=== PATIENT | male | born 1970 | race Caucasian/White ===

== ENCOUNTER 2021-02-27 02:29 | Emergency (ER) | payer OTHER ==
[~2021-02-27 02:29] MED LIST: BACTRIM DS TAB1 EACH PO; HCTZ25 MG PO
[2021-02-27 03:21] LABS: BASOPHIL 0.7 % (0-2); EOSINOPHIL 2.5 % (0-5); HCT 29.3 % (42.0-52.0); LYMPHOCYTE 13.4 % (15-48); MCH 40.5 pg (25.0-31.0); MCHC 34.1 g/dL (32.0-36.0); MCV 118.6 fL (78.0-100.0); MONOCYTE 13.4 % (0-12); MPV 10.8 fL (6.0-9.5); NEUTROPHIL 69.1 % (41-80); NRBC 0; RBC 2.47 M/uL (4.70-6.00); WBC 5.6 K/uL (4.0-10.5)
[2021-02-27 03:31] LABS: INR 2.21 (0.9-1.2); PROTHROMBIN TIME 23.3 SECONDS (11.4-13.6); PTT 39.6 SECONDS (22.2-34.7)
[2021-02-27 03:39] LABS: ALBUMIN 1.7 g/dL (3.4-5.0); BILIRUBIN - DIRECT 4.8 mg/dL (0.00-0.20); BILIRUBIN - TOTAL 7.5 mg/dL (0.2-1.0); BUN/CREAT RATIO (CALC) 16.7 RATIO; C-REACTIVE PROTEIN 5.8 mg/dL (<=0.90); CREATININE 0.66 mg/dL (0.67-1.17); GLOBULIN (CALCULATION) 6.1 g/dL; MAGNESIUM 1.9 mg/dL (1.8-2.4); PHOSPHORUS 2.1 mg/dL (2.6-4.7); POTASSIUM 3.6 mmol/L (3.5-5.1); TOTAL PROTEIN 7.8 g/dL (6.4-8.2)
[2021-02-27 03:48] LABS: PLT 75 K/uL (150-400)
[2021-02-27 03:55] LABS: LACTIC ACID 4.3 mmol/L (0.4-1.9)
[2021-02-27 04:57] LABS: BILIRUBIN 1+ mg/dL (NEGATIVE); BLOOD NEGATIVE Ery/uL (NEGATIVE); CLARITY CLEAR (CLEAR); COLOR YELLOW (YELLOW); GLUCOSE (U) NORMAL (NORMAL); LEUKOCYTES NEGATIVE Leu/uL (NEGATIVE); NITRITE NEGATIVE (NEGATIVE); PROTEIN NEGATIVE (NEGATIVE); pH 5.5 (5.0-9.0)
[2021-03-30] MEDS ORDERED: PRINIVIL10 MG PO (09:54)
[2021-03-30] MEDS ORDERED: ATARAX25 MG PO (09:56)
[2021-03-30] MEDS ORDERED: FOLIC ACID1 MG PO ×2 (11:44→17:05)
[2021-03-30] MEDS ORDERED: PROTONIX 40MG T40 MG PO ×2 (11:44→17:05)
[2021-03-30] MEDS ORDERED: LASIX40 MG PO ×2 (11:44→17:05)
[2021-03-30] MEDS ORDERED: K-DUR20 MEQ PO (11:45)
[2021-03-30] MEDS ORDERED: ALDACTONE100 MG PO ×2 (11:46→17:05)
== END 2021-02-27 15:10 | disposition other institution (70) ==
LOC: FER 02:29
PROVIDERS: Emergency Medicine Emergency Medical Services
DX: K74.60 Unspecified cirrhosis of liver (principal); K76.6 Portal hypertension; R60.0 Localized edema; R21 Rash and other nonspecific skin eruption; N50.819 Testicular pain, unspecified; F17.200 Nicotine dependence, unspecified, uncomplicated
CPT/HCPCS: 36415; 71045; 80053; 81003; 82150; 82248; 83605; 83690; 83735; 84100; 84145; 85025; 85610; 85730; 86140; 87040; 87077; 87186; 93005; J1940; J2060; J7030; Q9967

== ENCOUNTER 2021-03-08 18:40 | Emergency (ER) | payer OTHER ==
[2021-03-08 19:48] LABS: ALBUMIN 1.8 g/dL (3.4-5.0); BILIRUBIN - TOTAL 6.6 mg/dL (0.2-1.0); BUN/CREAT RATIO (CALC) 21.1 RATIO; CREATININE 0.71 mg/dL (0.67-1.17); GLOBULIN (CALCULATION) 5.8 g/dL; TOTAL PROTEIN 7.6 g/dL (6.4-8.2)
[2021-03-08 19:53] LABS: BASOPHIL 0.7 % (0-2); EOSINOPHIL 3.3 % (0-5); HCT 30.7 % (42.0-52.0); HGB 10.3 g/dl (13.2-18.0); LYMPHOCYTE 14.1 % (15-48); MCHC 33.6 g/dL (32.0-36.0); MONOCYTE 15.6 % (0-12); MPV 10.1 fL (6.0-9.5); NEUTROPHIL 65.9 % (41-80); NRBC 0; PLT 113 K/uL (150-400); RBC 2.64 M/uL (4.70-6.00)
[2021-03-08 19:54] LABS: MCV 116.3 fL (78.0-100.0); POTASSIUM 4.2 mmol/L (3.5-5.1)
[2021-03-08 19:56] LABS: LACTIC ACID 1.9 mmol/L (0.4-1.9)
[2021-03-08 20:01] LABS: MAGNESIUM 1.9 mg/dL (1.8-2.4); PHOSPHORUS 3.7 mg/dL (2.6-4.7)
[2021-03-08 21:09] LABS: BILIRUBIN 1+ mg/dL (NEGATIVE); BLOOD NEGATIVE Ery/uL (NEGATIVE); CLARITY CLEAR (CLEAR); COLOR YELLOW (YELLOW); GLUCOSE (U) NORMAL (NORMAL); LEUKOCYTES NEGATIVE Leu/uL (NEGATIVE); NITRITE NEGATIVE (NEGATIVE); PROTEIN NEGATIVE (NEGATIVE)
[2021-03-30] MEDS ORDERED: PRINIVIL10 MG PO (09:54)
[2021-03-30] MEDS ORDERED: ATARAX25 MG PO (09:56)
[2021-03-30] MEDS ORDERED: FOLIC ACID1 MG PO ×2 (11:44→17:05)
[2021-03-30] MEDS ORDERED: LASIX40 MG PO ×2 (11:44→17:05)
[2021-03-30] MEDS ORDERED: PROTONIX 40MG T40 MG PO ×2 (11:44→17:05)
[2021-03-30] MEDS ORDERED: K-DUR20 MEQ PO (11:45)
[2021-03-30] MEDS ORDERED: ALDACTONE100 MG PO ×2 (11:46→17:05)
== END 2021-03-09 03:32 | disposition home or self-care (01) ==
LOC: FER 18:40
PROVIDERS: Emergency Medicine Emergency Medical Services
DX: R18.8 Other ascites (principal); K42.9 Umbilical hernia without obstruction or gangrene; K40.90 Unilateral inguinal hernia, without obstruction or gangrene, not specified as recurrent; I10 Essential (primary) hypertension; R60.0 Localized edema; Z79.899 Other long term (current) drug therapy; Z87.19 Personal history of other diseases of the digestive system
CPT/HCPCS: 36415; 80053; 81003; 83605; 83690; 83735; 84100; 85025; 96374; P9046

== ENCOUNTER 2021-03-31 13:36 | Inpatient (IN) | payer OTHER ==
[~2021-03-31] VITALS: Ht 198.1 cm; Wt 117.1 kg
[~2021-03-31 13:36] MED LIST changes: +ALDACTONE100 MG PO; +ATARAX25 MG PO; +FOLIC ACID1 MG PO; +K-DUR20 MEQ PO; +LASIX40 MG PO; +PRINIVIL10 MG PO; +PROTONIX 40MG T40 MG PO
[2021-03-31 14:23] LABS: BASOPHIL 0.2 % (0-2); EOSINOPHIL 0.1 % (0-5); HCT 30.1 % (42.0-52.0); HGB 10.4 g/dl (13.2-18.0); LYMPHOCYTE 1.9 % (15-48); MCH 36.2 pg (25.0-31.0); MCHC 34.6 g/dL (32.0-36.0); MCV 104.9 fL (78.0-100.0); MONOCYTE 6.6 % (0-12); MPV 10.7 fL (6.0-9.5); NEUTROPHIL 89.6 % (41-80); NRBC 0; PLT 113 K/uL (150-400); RBC 2.87 M/uL (4.70-6.00); RDW 14.2 % (11.5-14.0)
[2021-03-31 14:37] LABS: WBC 16.1 K/uL (4.0-10.5)
[2021-03-31 14:43] LABS: ALBUMIN 1.8 g/dL (3.4-5.0); BILIRUBIN - TOTAL 7.1 mg/dL (0.2-1.0); BUN/CREAT RATIO (CALC) 21.9 RATIO; CREATININE 1.83 mg/dL (0.67-1.17); GLOBULIN (CALCULATION) 5.4 g/dL; TOTAL PROTEIN 7.2 g/dL (6.4-8.2)
[2021-03-31 15:03] LABS: INR 2.25 (0.9-1.2); PTT 38.6 SECONDS (24.4-34.7)
[2021-03-31 15:27] LABS: LACTIC ACID 5.7 mmol/L (0.4-1.9)
[2021-03-31 15:45] LABS: BILIRUBIN 2+ mg/dL (NEGATIVE); BLOOD 1+ Ery/uL (NEGATIVE); CLARITY CLEAR (CLEAR); COLOR YELLOW (YELLOW); GLUCOSE (U) NORMAL (NORMAL); LEUKOCYTES NEGATIVE Leu/uL (NEGATIVE); NITRITE POSITIVE (NEGATIVE); PROTEIN TRACE (LOW) mg/dL (NEGATIVE)
[2021-03-31 15:47] LABS: MARIJUANA (THC) NEGATIVE (NEGATIVE)
[2021-03-31 15:48] LABS: AMPHETAMINES NEGATIVE (NEGATIVE); BARBITURATES NEGATIVE (NEGATIVE); ECSTASY (MDMA) NEGATIVE (NEGATIVE); METHADONE NEGATIVE (NEGATIVE); OPIATES NEGATIVE (NEGATIVE); OXYCODONE NEGATIVE (NEGATIVE)
[2021-03-31 15:56] LABS: BACTERIA TRACE; SQUAMOUS EPITHELIAL CELLS RARE; URINARY RBC RARE
[2021-03-31 20:31] LABS: CLARITY (FLUID) CLOUDY; COLOR (FLUID) YELLOW
[2021-03-31 20:32] LABS: RBC (FLUID) 0 RBC/uL; WBC (FLUID) 19 WBC/uL
[2021-04-01 04:41] LABS: BASOPHIL 0.3 % (0-2); EOSINOPHIL 0.3 % (0-5); LYMPHOCYTE 2.7 % (15-48); MCH 36.4 pg (25.0-31.0); MCHC 34.5 g/dL (32.0-36.0); MCV 105.5 fL (78.0-100.0); MPV 10.3 fL (6.0-9.5); NEUTROPHIL 86.5 % (41-80); NRBC 0; PLT 111 K/uL (150-400); RBC 2.75 M/uL (4.70-6.00); RDW 14.4 % (11.5-14.0)
[2021-04-01 04:42] LABS: WBC 22.9 K/uL (4.0-10.5)
[2021-04-01 05:09] LABS: BUN/CREAT RATIO (CALC) 28.2 RATIO; CREATININE 1.56 mg/dL (0.67-1.17)
[2021-04-01 05:10] LABS: POTASSIUM 5.2 mmol/L (3.5-5.1)
--- NOTE | 2021-04-01 16:56 | NUR ---
04/01/21 Mr. Vicente requested to speak with this clinical social work therapist re: financial and counseling resources. He is living alone in an apartment. Mr. Vicente is employed at [employer] although he has been unable to work for the last month. He has a car. Mr. Vicente is in the application process for [employer]. He is unable to pay next months rent. - Mr. Vicente denies suicidal ideation, intentions, or attempts. - He was referred to: [facility], [facility], [facility], [facility], [employer], and [employer] [facility]. A crisi hotline was provided. He was educated to methods of relaxation and stress reduction.
[2021-04-02 04:08] LABS: BASOPHIL 0.5 % (0-2); EOSINOPHIL 0.4 % (0-5); HCT 29.6 % (42.0-52.0); HGB 9.8 g/dl (13.2-18.0); LYMPHOCYTE 2.8 % (15-48); MCHC 33.1 g/dL (32.0-36.0); MCV 108.8 fL (78.0-100.0); MONOCYTE 8.7 % (0-12); MPV 11.1 fL (6.0-9.5); NEUTROPHIL 85.4 % (41-80); NRBC 0; PLT 84 K/uL (150-400); RBC 2.72 M/uL (4.70-6.00); RDW 14.5 % (11.5-14.0); WBC 20.1 K/uL (4.0-10.5)
[2021-04-02 04:25] LABS: ALBUMIN 1.5 g/dL (3.4-5.0); BILIRUBIN - TOTAL 6.6 mg/dL (0.2-1.0); BUN/CREAT RATIO (CALC) 24.4 RATIO; C-REACTIVE PROTEIN 17.7 mg/dL (<=0.90); CREATININE 2.17 mg/dL (0.67-1.17); GLOBULIN (CALCULATION) 4.5 g/dL; POTASSIUM 5.8 mmol/L (3.5-5.1)
[2021-04-02 15:30] LABS: RBC (FLUID) 3000 RBC/uL; WBC (FLUID) 7587 WBC/uL
[2021-04-02 15:35] LABS: CLARITY (FLUID) CLOUDY; COLOR (FLUID) YELLOW
--- NOTE | 2021-04-02 16:28 | NUR ---
PARACENTESIS STARTED PER MD AT 1507, CLEAR YELLOW OUTPUT, PT TOLERATED WELL, DRAINAGE SYSTEM MANAGED BY THIS NURSE, MD REQUESTED ONLY 8 LITERS TO BE TAKEN OFF AT THIS TIME, PARACENTESIS ENDED AT 1620, CATHETER REMOVED AND DRESSING APPLIED, WILL CONTINUE TO MONITOR FOR ANY EXCESSIVE DRAINAGE AT SITE
[2021-04-03 06:36] LABS: BASOPHIL 0.5 % (0-2); EOSINOPHIL 0.2 % (0-5); HCT 30.3 % (42.0-52.0); LYMPHOCYTE 2.5 % (15-48); MCH 36.4 pg (25.0-31.0); MCV 110.2 fL (78.0-100.0); MONOCYTE 8.1 % (0-12); MPV 10.8 fL (6.0-9.5); NEUTROPHIL 85.1 % (41-80); NRBC 0; PLT 128 K/uL (150-400); RBC 2.75 M/uL (4.70-6.00); RDW 14.4 % (11.5-14.0)
[2021-04-03 06:37] LABS: WBC 27.5 K/uL (4.0-10.5)
[2021-04-03 06:51] LABS: BUN/CREAT RATIO (CALC) 21.6 RATIO; CREATININE 2.87 mg/dL (0.67-1.17); POTASSIUM 5.6 mmol/L (3.5-5.1)
[2021-04-03] MEDS ORDERED: ZYVOX RTU600 MG/300 IV (13:12)
[2021-04-03] MEDS ORDERED: OXY-IR 5MG5 MG PO (13:12)
--- NOTE | 2021-04-03 18:14 | NUR ---
HIS BROTHER TOOK KEYS HOME WITH HIM
[2021-04-04 02:20] LABS: BASOPHIL 0 % (0-2); EOSINOPHIL 0.1 % (0-5); HGB 9.2 g/dl (13.2-18.0); LYMPHOCYTE 6.2 % (15-48); MCH 36.7 pg (25.0-31.0); MCHC 29.7 g/dL (32.0-36.0); MONOCYTE 2.7 % (0-12); MPV 10.7 fL (6.0-9.5); NRBC 0.5; PLT 101 K/uL (150-400); RBC 2.51 M/uL (4.70-6.00); RDW 14.3 % (11.5-14.0); WBC 23.6 K/uL (4.0-10.5)
[2021-04-04 02:27] LABS: MCV 123.5 fL (78.0-100.0); NEUTROPHIL 79.6 % (41-80)
--- NOTE | 2021-04-04 02:54 | NUR ---
0200 Pt had been on levo at 16mcg/min for most of shift with bp remaining relatively stable, was on phone with pt mother regarding pt mental status change when pt HR began to drop from low 100s to low 70s and became unresponsive eventually sustaining a v fib rhythm. Started compressions at approx 0200, see chart for official note and code details. Mother was notified of situation and taxi was called to bring to the hospital.
[2021-04-04 03:02] LABS: ALBUMIN 2.2 g/dL (3.4-5.0); ALKALINE PHOSHATASE 402 U/L (46-116); ALT 2764 U/L (16-63); BUN 62 mg/dL (7-18); BUN/CREAT RATIO (CALC) 16.4 RATIO; CHLORIDE 94 mmol/L (98-107); CO2 (BICARBONATE) 10 mmol/L (21-32); CREATININE 3.77 mg/dL (0.67-1.17); GLOBULIN (CALCULATION) 3.3 g/dL; GLUCOSE 57 mg/dL (74-106); TOTAL PROTEIN 5.5 g/dL (6.4-8.2)
[2021-04-04 03:04] LABS: POTASSIUM 7.8 mmol/L (3.5-5.1)
[2021-04-04 03:05] LABS: PROTHROMBIN TIME > 120 SECONDS (11.8-13.4)
[2021-04-04 03:07] LABS: INR > 18 (0.9-1.2)
[2021-04-04 03:22] LABS: AST >2000 U/L (15-37)
== END 2021-04-04 07:25 | disposition expired | DRG 871 ==
LOC: FER 13:36 → FICU 17:01
PROVIDERS: Emergency Medicine; Nurse Practitioner; ADMIT Internal Medicine
PROC: 0W9G3ZX Drainage of Peritoneal Cavity, Percutaneous Approach, Diagnostic (ICD-10-PCS; 2021-03-31)
PROC: 3E033XZ Introduction of Vasopressor into Peripheral Vein, Percutaneous Approach (ICD-10-PCS; 2021-03-31)
PROC: 0W9G3ZZ Drainage of Peritoneal Cavity, Percutaneous Approach (ICD-10-PCS; principal; 2021-04-02)
PROC: 05HM33Z Insertion of Infusion Device into Right Internal Jugular Vein, Percutaneous Approach (ICD-10-PCS; 2021-04-03)
PROC: B543ZZA Ultrasonography of Right Jugular Veins, Guidance (ICD-10-PCS; 2021-04-03)
PROC: 0BH17EZ Insertion of Endotracheal Airway into Trachea, Via Natural or Artificial Opening (ICD-10-PCS; 2021-04-04)
PROC: 5A1935Z Respiratory Ventilation, Less than 24 Consecutive Hours (ICD-10-PCS; 2021-04-04)
PROC: 5A12012 Performance of Cardiac Output, Single, Manual (ICD-10-PCS; 2021-04-04)
DX: A41.02 Sepsis due to Methicillin resistant Staphylococcus aureus (principal); K65.2 Spontaneous bacterial peritonitis; K76.7 Hepatorenal syndrome; J18.9 Pneumonia, unspecified organism; R65.21 Severe sepsis with septic shock; N17.0 Acute kidney failure with tubular necrosis; D68.9 Coagulation defect, unspecified; I96 Gangrene, not elsewhere classified; K76.6 Portal hypertension; E87.1 Hypo-osmolality and hyponatremia; I46.9 Cardiac arrest, cause unspecified; K21.9 Gastro-esophageal reflux disease without esophagitis; K70.31 Alcoholic cirrhosis of liver with ascites; Z20.822 Contact with and (suspected) exposure to COVID-19; S91.112A Laceration without foreign body of left great toe without damage to nail, initial encounter; L03.032 Cellulitis of left toe; I10 Essential (primary) hypertension; S00.81XA Abrasion of other part of head, initial encounter; V43.52XA Car driver injured in collision with other type car in traffic accident, initial encounter; Z87.891 Personal history of nicotine dependence; Z79.899 Other long term (current) drug therapy
CPT/HCPCS: 31500; 36415; 36600; 70450; 71045; 71250; 73718; 80048; 80053; 80305; 81001; 82140; 82803; 83605; 83735; 84145; 84300; 84484; 85025; 85610; 85730; 86140; 87040; 87070; 87077; 87088; 87186; 87205; 89051; 92950; 93005; C1751; G0378; G0480; J0171; J0282; J0461; J0610; J0696; J1170; J2020; J2370; J2405; J3370; J7030; J7040; P9046; U0002